=== PATIENT | female | born 1965 | race Caucasian/White ===

== ENCOUNTER 2016-12-15 14:00 | Inpatient (IN) | payer MEDICAID ==
[~2016-12-15] VITALS: Ht 160 cm; Wt 79.8 kg
--- NOTE | 2016-12-15 14:09 | NUR ---
PT TO ROOM 11. EKG IN PROGRESS.
[2016-12-15 14:33] LABS: BASOPHIL % 0.5 % (0-2); PLATELET COUNT 205 x10^3mcL (130-400); RED CELL DISTRIBUTION WIDTH 14.5 % (11.5-14.5)
[2016-12-15 14:40] LABS: CARBON DIOXIDE 29.9 mmol/L (21-32); CHLORIDE SERUM 107 mmol/L (98-107); CREATININE SERUM 0.7 mg/dL (0.6-1.0); GFR1 > 60 mL/min; GLUCOSE SERUM 112 mg/dL (74-106); POTASSIUM SERUM 3.7 mmol/L (3.5-5.1); SODIUM SERUM 143 mmol/L (136-145)
[2016-12-15] MEDS ORDERED: ASPIR 8181 MG PO (16:01)
[2016-12-15] MEDS ORDERED: LOSARTAN POTASS50 M1 PO (16:01)
[2016-12-15] MEDS ORDERED: QVAR0.08 MG/Ac IH (16:02)
[2016-12-15] MEDS ORDERED: ALBUTEROL0.63 MG/3 IH (16:02)
--- NOTE | 2016-12-15 16:11 | NUR ---
PT ADMITTED TO TELE, REPORT GIVEN TO SILVESTRE.
[2016-12-15 16:35] VITALS: BP 148/104
[2016-12-15 16:39] VITALS: BP 148/104
--- NOTE | 2016-12-15 16:51 | NUR ---
RECEIVED PATIENT FROM ED VIA GUERNEY, PATIENT ALERT AND ORIENTED MOTHER AT BEDSIDE, TELE # 40 SR, IV ACCESS TO LAC WNL, C/O PAIN TO CHEST WILL MEDICATE ORDERED, ORIENTED PATIENT TO ROOM AND SURROUNDINGS, BED IN LOW POSITION, BED RAILS UP X 2, CALL LIGHT WITHIN REACH, WILL ENDORSE CARE TO PRIMARY NURSE URSULA PARKINSON
[2016-12-15 17:18] LABS: CHOLESTEROL/HDL RATIO 4.6; MAGNESIUM 2.1 mg/dL (1.8-2.4); PHOSPHOROUS 3.6 mg/dL (2.5-4.9)
[2016-12-15 17:28] LABS: FREE T4 1.06 ng/dL (0.76-1.46); FREE THYROXINE INDEX 3.2 ug/dL (1.4-4.5); T4(THYROXINE) 8.1 ug/dL (4.7-13.3)
[2016-12-15 17:51] LABS: T3 TOTAL 1.06 ng/mL
[2016-12-15 18:22] VITALS: BP 142/83
--- NOTE | 2016-12-15 18:31 | NUR ---
INSTRUCTED THE PATIENT TO GIVE URINE SAMPLE TO SEND TO LAB FOR UA. K-PAD WAS APPLIED TO LOWER BACK. SEQUENTIAL STOCKINGS WERE APPLIED TO BLE. THE PATIENT C/O LEFT SHOULDER ACHING 6/10; TORADOL 30 MG IVP WAS ADMINISTERED TO THE PATIENT AT 1808. WILL REASSESS THE PAIN.
--- NOTE | 2016-12-15 19:35 | NUR ---
RECD REPORT FROM IGGY VERGARA. PT IN BED LAYING DOWN AT THE MOMENT. PT AAO X4. PT ON TELE #40, NSR. PULSES PRESENT, NO EDEMA NOTED ON BLE. LUNG SOUNDS CLEAR TO AUSCULTATION. BOWEL SOUNDS ACTIVE. PT STATES HER LAST BM WAS EARLIER TODAY AND IT WAS DIARRHEA. NO N/V, SKIN INTACT. PT STATES SHE HAS 8/10 GENERALIZED PAIN ALL OVER HER BODY. PT STATES THE PAIN IS LIKE A PRESSURE PAIN. IV IN LAC RUNNING NS @ 100 ML/HR. PT IS IN A CALM MOOD. SCD'S AND K-PAD ARE IN PLACE. BED IN LOW POSITION, CALL LIGHT WITHIN REACH, WILL CONTINUE TO MONITOR.
--- NOTE | 2016-12-15 20:15 | NUR ---
I HAVE REVIEWED THE DATA COLLECTION BY PARALEGAL SPECIALIST (NAME):IGGY CHAPMAN CHI, ENTERED ON (DATE/TIME): I CONCUR WITH THE DATA AND ANY EXCEPTIONS OR COMMENTS ARE LISTED BELOW:
--- NOTE | 2016-12-15 20:30 | NUR ---
PT REASESSED FOR PAIN AND STATED PAIN IS MINIMAL AT THIS TIME. PT STATED SHE WANTS PAIN MEDS AT A LATER TIME .
[2016-12-15 20:58] VITALS: BP 114/73
--- NOTE | 2016-12-15 21:51 | NUR ---
PT C/O PAIN 8/10 IN UPPER LEFT CHEST, LEFT SHOULDER, LEFT ARM AND BLE. PT MEDICATED WITH FLEXERIL 5 MG PO. WILL REASSESS PAIN LEVEL.
--- NOTE | 2016-12-15 23:00 | NUR ---
PT SLEEPING AT THIS TIME. NO SIGNS OF DISTRESS/PAIN NOTED. WILL CONTINUE TO MONITOR.
[2016-12-15 23:41] LABS: microscopic required? YES; urine erythrocyte NEGATIVE (NEGATIVE)
--- NOTE | 2016-12-16 04:55 | NUR ---
PT SLEEPING COMFORTABLY AT THIS TIME WITH NO SIGNS OF DISTRESS NOTED. WILL CONTINUE TO MONITOR.
--- NOTE | 2016-12-16 05:21 | NUR ---
PT SLEPT THROUGH NIGHT COMFORTABLY. PT C/O PAIN IN LEFT UPPER CHEST, BLE, WITH PAIN MORE PROMINENT IN LEFT ARM AT BEGINNING OF SHIFT. NO C/O PAIN THROUGHOUT REST OF SHIFT. PT AMBULATED TO RESTROOM 2X. URINALYSIS SENT TO LAB WITH RESULTS: MODERATE BACTERIA, 2+ LEUKOCYTES, WBC 6-10.
[2016-12-16 05:23] VITALS: BP 138/84
[2016-12-16 06:14] LABS: CALCIUM 8.9 mg/dL (8.5-10.1); CARBON DIOXIDE 28.1 mmol/L (21-32); CHLORIDE SERUM 110 mmol/L (98-107); CREATININE SERUM 0.8 mg/dL (0.6-1.0); GFR1 > 60 mL/min; GLUCOSE SERUM 96 mg/dL (74-106); SODIUM SERUM 145 mmol/L (136-145)
[2016-12-16 06:20] LABS: BASOPHIL % 0.6 % (0-2); PLATELET COUNT 181 x10^3mcL (130-400)
--- NOTE | 2016-12-16 06:20 | NUR ---
PT STATED PAIN IN UPPER LEFT CHEST, SHOULDER, AND LEFT ARM 7/10. PT STATED FLEXERIL WORKED BEST FOR HER SHE WAS ABLE TO SLEEP BETTER IN THE EVENING. PT MEDICATED WITH FLEXERIL 5 MG PO.
[2016-12-16 06:37] LABS: RED CELL DISTRIBUTION WIDTH 14.9 % (11.5-14.5)
[2016-12-16 07:16] VITALS: BP 138/84
--- NOTE | 2016-12-16 07:32 | NUR ---
PT VERBALIZED PAIN WENT DOWN FROM 7/10 TO 6/10 AFTER BEING MEDICATED WITH FLEXERIL 5 MG PO.
--- NOTE | 2016-12-16 07:33 | NUR ---
REPORT GIVEN TO IGGY SCHULTZ. ALL CARES ENDORSED.
--- NOTE | 2016-12-16 07:36 | NUR ---
ALERT AND ORIENTED. REPORTS SOME RELIEF FROM PAIN, BUT STILL 6/10. PAIN IS ON LEFT SIDE OF BODY BELOW AXILLARY AREA AND DOWN LEFT ARM. PAIN IN LEGS IS RESOLVED. HEATING PAD TO MID BACK. HAS REMOVED SCDS AMBULATED TO BATHROOM WITHOUT ASSISTANCE. NO SOB NOTED, ROOM AIR. NO EDEMA NOTED. NS @ 100 TO LAC WNL. REPORTS WISHING SHE COULD THROW UP, BUT HAD HIATAL HERNIA SURGERY AND IS UNABLE, DOES NOT WANT HOB ELEVATED. "I FEEL AWFUL". TELE 40. CALL LIGHT WITHIN REACH.
--- NOTE | 2016-12-16 08:57 | NUR ---
DR SOMERS IN TO SEE PATIENT. MADE AWARE THAT LEVAQUIN AND ROCEPHIN ORDERED FOR UTI, AND ROCEPHIN IS HANGING. NGUYỄN TO BE DC'D.
--- NOTE | 2016-12-16 10:07 | NUR ---
SPOKE WITH DR RAMOS ABOUT NGUYỄN VS BOBBY BEING DC'D.
[2016-12-16 10:15] VITALS: BP 142/79
--- NOTE | 2016-12-16 10:52 | NUR ---
UP AMBULATING TO BATHROOM, STEADY ON FEET.
[2016-12-16 12:44] LABS: CALCIUM 8.8 mg/dL (8.5-10.1); CARBON DIOXIDE 27.6 mmol/L (21-32); CHLORIDE SERUM 109 mmol/L (98-107); CREATININE SERUM 0.9 mg/dL (0.6-1.0); GFR1 > 60 mL/min; GLUCOSE SERUM 154 mg/dL (74-106); POTASSIUM SERUM 3.6 mmol/L (3.5-5.1); SODIUM SERUM 143 mmol/L (136-145)
--- NOTE | 2016-12-16 13:50 | NUR ---
NO DISTRESS NOTED.
[2016-12-16 14:07] VITALS: BP 117/64
--- NOTE | 2016-12-16 14:26 | NUR ---
USING ELECTRONIC DEVICE, NO DISTRESS NOTED.
--- NOTE | 2016-12-16 16:55 | NUR ---
USING ELECTRONIC DEVICE.
--- NOTE | 2016-12-16 17:02 | NUR ---
PAGED DR RAMOS TO REMIND ABOUT NGUYỄN BEING DC'D.
[2016-12-16 17:09] VITALS: BP 144/88
[2016-12-16 17:37] LABS: AMPHETAMINE QUAL UR NONE DETECTED (NEG <=1000)
--- NOTE | 2016-12-16 18:00 | NUR ---
SITTING BEDSIDE EATING BREAKFAST.
--- NOTE | 2016-12-16 19:20 | NUR ---
SEEN AAOX4. DENIES CHEST PAIN. BREATHING EASY ON ROOM AIR. NSR ON TELE# 40. LUNG SOUND CTA. STS VOIDS FREELY, BRP WITH STEADY GAIT. IVF NS TO LAC INFUSING AT 100ML/HR, ON ROCEPHIN IV Q 24HRS. PLAN OF CARE DISCUSSED. CALL LIGHT PLACED WITHIN EASY REACH. SIDERAILS UP X2.
--- NOTE | 2016-12-16 19:35 | NUR ---
IV CATHETER TO LAC REMOVED PER PATIENT'S REQUESTED, NO S/S OF INFLAMATION NOTED. NEW CATHETER#22 INSERTED TO LFA WITH GOOD BLD RETURNED AND FLUSHED WELL. IVF NS CONTINUED AT 100ML/HR.
[2016-12-16 21:12] VITALS: BP 142/64
--- NOTE | 2016-12-17 05:00 | NUR ---
NO ANY DISTRESS THROUGHOUT SHIFT. VSS. FLEXERIL PO X1TAB GIVEN PER PATIENT'S REQUESTED STS FOR SLEEPING. STS VOIDS FREELY, BRP. IVF NS AT 100ML/HR INFUSING WELL.
[2016-12-17 05:52] VITALS: BP 134/70
--- NOTE | 2016-12-17 07:24 | NUR ---
PT RECEIVED DURING CHANGE OF SHIFT, ASLEEP BUT AROUSABLE, TELE 40, NSR, PULSES PRESENT, NO EDEMA NOTED, LUNGS CTA ON RA, BREATHING EVEN AND UNLABORED, BOWEL SOUNDS ACTIVE, ABLE TO VOID, UTI REPORTED, AMBULATORY, SKIN WARM/DRY/INTACT, NO INDICATION OF PAIN, IV INFUSING NS AT 100ML/HR, CALL LIGHT WITHIN REACH, WILL CONTINUE TO MONITOR.
[2016-12-17 08:35] VITALS: BP 129/85
[2016-12-17 09:23] VITALS: BP 129/85
[2016-12-17 09:31] VITALS: BP 129/85
--- NOTE | 2016-12-17 09:36 | NUR ---
PT DENIES SOB, DENIES PAIN, CALL LIGHT WITHIN REACH, WILL CONTINUE TO MONITOR.
[2016-12-17] MEDS ORDERED: CYCLOBENZAPRINE5 MG PO (10:06)
--- NOTE | 2016-12-17 10:08 | NUR ---
PT DENIES SOB, DENIES PAIN, CALL LIGHT WITHIN REACH, WILL CONTINUE TO MONITOR.
--- NOTE | 2016-12-17 10:56 | NUR ---
PT RECEIVED DISCHARGE INSTRUCTIONS, VERBALIZES UNDERSTANDING, ALL QUESTIONS ANSWERED, IV DC'D CATHETER INTACT, ARMBANDS DC'D, TELE 40 DC'D AND RETURNED TO MONITOR STATION, PT INSTRUCTED TO NOTIFY STAFF WHEN READY TO BE ESCORTED DOWNSTAIRS, CALL LIGHT WITHIN REACH.
--- NOTE | 2016-12-17 11:18 | NUR ---
PT BEING ESCORTED DOWNSTAIRS BY AUTOMOTIVE DESIGNER.
[2016-12-17] MEDS ORDERED: CIPRO250 MG PO (14:08)
== END 2016-12-17 11:20 | disposition home or self-care (01) | DRG 243 ==
LOC: ED 14:00 → DU 15:48
PROVIDERS: Emergency Medicine; ADMIT Family Medicine
DX: K21.9 Gastro-esophageal reflux disease without esophagitis (principal); I10 Essential (primary) hypertension; N39.0 Urinary tract infection, site not specified; R73.03 Prediabetes; J44.9 Chronic obstructive pulmonary disease, unspecified; K44.9 Diaphragmatic hernia without obstruction or gangrene; M79.7 Fibromyalgia; E78.5 Hyperlipidemia, unspecified; Z68.31 Body mass index [BMI] 31.0-31.9, adult; Z87.442 Personal history of urinary calculi
CPT/HCPCS: 82962; 83880; 84439; J0696; J1885; J1956; J7030; J7613; Q0092

== ENCOUNTER 2017-08-21 10:49 | Emergency (ER) | payer OTHER ==
[~2017-08-21] VITALS: Ht 152.4 cm; Wt 83.0 kg
[~2017-08-21 10:49] MED LIST: ALBUTEROL0.63 MG/3 IH; ASPIR 8181 MG PO; CIPRO250 MG PO; CYCLOBENZAPRINE5 MG PO; LOSARTAN POTASS50 M1 PO; QVAR0.08 MG/Ac IH
[2017-08-21 10:55] VITALS: Ht 152.4 cm; Wt 83.0 kg
[2017-08-21 11:29] LABS: BASOPHIL % 0.4 % (0-2); PLATELET COUNT 265 x10^3mcL (130-400)
[2017-08-21 11:30] LABS: RED CELL DISTRIBUTION WIDTH 15.3 % (11.5-14.5)
[2017-08-21 11:40] LABS: CALCIUM 8.6 mg/dL (8.5-10.1); CHLORIDE SERUM 108 mmol/L (98-107); CREATININE SERUM 0.7 mg/dL (0.6-1.0); GFR1 > 60 mL/min; GLUCOSE SERUM 95 mg/dL (74-106); POTASSIUM SERUM 3.8 mmol/L (3.5-5.1); SODIUM SERUM 144 mmol/L (136-145)
[2017-08-21 11:44] LABS: ALBUMIN 3.4 g/dL (3.4-5.0); ALKALINE PHOSPHATASE 125 U/L (46-116); ALT/SGPT 27 U/L (14-59); AST/SGOT 17 U/L (15-37); BILIRUBIN TOTAL 0.31 mg/dL (0.20-1.00); CHOLESTEROL 168 mg/dL (<200); CHOLESTEROL/HDL RATIO 3.6; HDL CHOLESTEROL 47 mg/dL (40-60); LIPASE 160 IU/L (73-393); TOTAL PROTEIN, SERUM 6.8 g/dL (6.4-8.2); TRIGLYCERIDES 104 mg/dL (<150)
[2017-08-21 11:45] LABS: microscopic required? YES; urine erythrocyte NEGATIVE (NEGATIVE)
[2017-08-21 11:57] LABS: FREE T4 1.01 ng/dL (0.76-1.46); FREE THYROXINE INDEX 2.8 ug/dL (1.4-4.5); T4(THYROXINE) 7.7 ug/dL (4.7-13.3)
[2017-08-21 12:14] LABS: T3 TOTAL 0.98 ng/mL
[2017-08-21 12:25] VITALS: BP 118/71
== END 2017-08-21 12:47 | disposition home or self-care (01) ==
LOC: ED 10:49
PROVIDERS: Specialist
DX: J20.9 Acute bronchitis, unspecified (principal); I10 Essential (primary) hypertension; E11.9 Type 2 diabetes mellitus without complications; Z88.0 Allergy status to penicillin
CPT/HCPCS: 36415; 83880; 84439; Q0092

== ENCOUNTER 2017-11-22 14:16 | Inpatient (IN) | payer OTHER ==
[~2017-11-22] VITALS: Ht 160 cm; Wt 84.6 kg
[2017-11-22 14:21] VITALS: Ht 160 cm; Wt 84.6 kg
[2017-11-22 14:50] LABS: BASOPHIL % 0.6 % (0-2); PLATELET COUNT 268 x10^3mcL (130-400)
[2017-11-22 14:56] LABS: CALCIUM 9.5 mg/dL (8.5-10.1); CHLORIDE SERUM 107 mmol/L (98-107); CREATININE SERUM 0.9 mg/dL (0.6-1.0); GFR1 > 60 mL/min; GLUCOSE SERUM 105 mg/dL (74-106); POTASSIUM SERUM 3.8 mmol/L (3.5-5.1); SODIUM SERUM 142 mmol/L (136-145)
[2017-11-22] MEDS ORDERED: EPIPEN JR 20.5 MG/ML IM (16:22)
[2017-11-22] MEDS ORDERED: HYDROXYZINE HYD25 MG PO (16:24)
[2017-11-22] MEDS ORDERED: DIPHENHYDRAMINE50 MG PO (16:25)
[2017-11-22] MEDS ORDERED: PROAIR HFA8.5 GM IH (16:29)
[2017-11-22] MEDS ORDERED: DICLOFENAC SODI75 M3 PO (16:30)
[2017-11-22] MEDS ORDERED: BONINE25 MG PO (16:30)
[2017-11-22 16:43] LABS: MAGNESIUM 2.1 mg/dL (1.8-2.4); PHOSPHOROUS 3.9 mg/dL (2.5-4.9)
[2017-11-22 16:44] LABS: CHOLESTEROL/HDL RATIO 5.2
[2017-11-22 16:49] LABS: FREE T4 0.93 ng/dL (0.76-1.46); FREE THYROXINE INDEX 2.7 ug/dL (1.4-4.5); T3 TOTAL 1.11 ng/mL; T4(THYROXINE) 7.7 ug/dL (4.7-13.3)
[2017-11-22 17:25] VITALS: BP 153/95
[2017-11-22 17:45] VITALS: BP 128/86
[2017-11-22 21:18] VITALS: BP 152/99
[2017-11-22 22:07] LABS: microscopic required? NO
[2017-11-22 22:23] LABS: UA SPECIFIC GRAVITY 1.015 (1.005-1.035); urine erythrocyte NEGATIVE (NEGATIVE)
[2017-11-22 22:32] LABS: AMPHETAMINE QUAL UR NONE DETECTED (See below)
[2017-11-23 05:26] VITALS: BP 126/82
[2017-11-23 05:58] LABS: BASOPHIL % 0.5 % (0-2); PLATELET COUNT 211 x10^3mcL (130-400)
[2017-11-23 06:01] LABS: RED CELL DISTRIBUTION WIDTH 15.8 % (11.5-14.5)
[2017-11-23 06:08] LABS: CALCIUM 8.4 mg/dL (8.5-10.1); CARBON DIOXIDE 26.1 mmol/L (21-32); CHLORIDE SERUM 107 mmol/L (98-107); CREATININE SERUM 0.8 mg/dL (0.6-1.0); GFR1 > 60 mL/min; GLUCOSE SERUM 98 mg/dL (74-106); POTASSIUM SERUM 3.7 mmol/L (3.5-5.1); SODIUM SERUM 139 mmol/L (136-145)
[2017-11-23 08:50] VITALS: BP 113/67
[2017-11-23 11:55] VITALS: BP 113/67
[2017-11-23 12:36] VITALS: BP 119/48
== END 2017-11-23 15:32 | disposition home or self-care (01) | DRG 203 ==
LOC: ED 14:16 → DU 16:07
PROVIDERS: Emergency Medicine; Internal Medicine
DX: M94.0 Chondrocostal junction syndrome [Tietze] (principal); E78.5 Hyperlipidemia, unspecified; I10 Essential (primary) hypertension; R73.03 Prediabetes; F41.9 Anxiety disorder, unspecified; G89.29 Other chronic pain; J45.909 Unspecified asthma, uncomplicated; Z88.0 Allergy status to penicillin; Z79.899 Other long term (current) drug therapy
CPT/HCPCS: 82962; 83880; 84439; 94150; J1885; J2405; J7030; J7620; Q0092; Q0162; Q9967

== ENCOUNTER 2018-08-14 07:19 | Emergency (ER) | payer OTHER ==
[~2018-08-14] VITALS: Ht 160 cm; Wt 84.4 kg
[~2018-08-14 07:19] MED LIST changes: +BONINE25 MG PO; +DICLOFENAC SODI75 M3 PO; +DIPHENHYDRAMINE50 MG PO; +EPIPEN JR 20.5 MG/ML IM; +HYDROXYZINE HYD25 MG PO; +PROAIR HFA8.5 GM IH
[2018-08-14 07:27] VITALS: Ht 160 cm; Wt 84.4 kg
[2018-08-14 08:32] LABS: BASOPHIL % 1.1 % (0-2); PLATELET COUNT 282 x10^3mcL (130-400)
[2018-08-14 08:39] LABS: CALCIUM 8.8 mg/dL (8.5-10.1); CARBON DIOXIDE 26.1 mmol/L (21-32); CHLORIDE SERUM 107 mmol/L (98-107); CREATININE SERUM 0.8 mg/dL (0.6-1.0); GFR1 > 60 mL/min; GLUCOSE SERUM 109 mg/dL (74-106); POTASSIUM SERUM 3.9 mmol/L (3.5-5.1); SODIUM SERUM 142 mmol/L (136-145)
[2018-08-14 08:44] LABS: ALBUMIN 3.5 g/dL (3.4-5.0); ALKALINE PHOSPHATASE 119 U/L (46-116); ALT/SGPT 38 U/L (14-59); AST/SGOT 20 U/L (15-37); BILIRUBIN TOTAL 0.32 mg/dL (0.20-1.00)
[2018-08-14 08:52] LABS: RED CELL DISTRIBUTION WIDTH 15.4 % (11.5-14.5)
[2018-08-14 09:44] VITALS: BP 135/89
== END 2018-08-14 09:44 | disposition home or self-care (01) ==
LOC: ED 07:19
PROVIDERS: Emergency Medicine
DX: E11.42 Type 2 diabetes mellitus with diabetic polyneuropathy (principal); J45.909 Unspecified asthma, uncomplicated; I10 Essential (primary) hypertension; Z88.0 Allergy status to penicillin
CPT/HCPCS: 36415; 82962; Q0092

== ENCOUNTER 2018-09-21 19:13 | Inpatient (IN) | payer OTHER ==
[~2018-09-21] VITALS: Ht 160 cm; Wt 81.6 kg
[2018-09-21 19:19] VITALS: Ht 160 cm; Wt 81.6 kg
[2018-09-21 20:11] LABS: BASOPHIL % 0.6 % (0-2); PLATELET COUNT 298 x10^3mcL (130-400)
[2018-09-21 20:12] LABS: RED CELL DISTRIBUTION WIDTH 15.6 % (11.5-14.5)
[2018-09-21 20:27] LABS: CALCIUM 9.8 mg/dL (8.5-10.1); CARBON DIOXIDE 23.1 mmol/L (21-32); CHLORIDE SERUM 111 mmol/L (98-107); CREATININE SERUM 0.9 mg/dL (0.6-1.0); GFR1 > 60 mL/min; GLUCOSE SERUM 91 mg/dL (74-106); POTASSIUM SERUM 3.5 mmol/L (3.5-5.1); SODIUM SERUM 150 mmol/L (136-145)
[2018-09-21 20:32] LABS: ALKALINE PHOSPHATASE 131 U/L (46-116); ALT/SGPT 30 U/L (14-59); AST/SGOT 15 U/L (15-37); BILIRUBIN TOTAL 0.21 mg/dL (0.20-1.00); TOTAL PROTEIN, SERUM 7.8 g/dL (6.4-8.2)
--- NOTE | 2018-09-21 21:00 | NUR ---
PT AAOX4, PT GRIMACING AND GUARDING ABD. PT REPORTS LLQ ABD PAIN X 3 DAYS, WITH N/V/D. PT REPORTS VOMITING "ALL DAY TODAY". PT REPORTS BURNING ON URINATION AND INCREASE FREQUENCY. PT ENCOURAGED TO REPOSITION FOR COMFORT, PT TALKING TO FAMILY MEMBER AT BEDSIDE. RESPIRATIONS ARE EVEN AND UNLABORED.
--- NOTE | 2018-09-21 21:45 | NUR ---
PT SITTING UP IN BED, GRIMACING IN PAIN. ADMINSTERED TORADOL AND ZOFRAN IV PER ORDER. PT REFUSED IV FENTANYL STATING "IM A RECOVERING DRUG ADDICT JUST THE THOUGHT OF DRUGS IS MAKING MY HEART BEAT REALLY FAST".
--- NOTE | 2018-09-21 22:30 | NUR ---
PT REPORTS PAIN HAS INCREASED TO 8/10 OF LLQ. PT ADMINSTERED IV FENTANYL PER ORDER.
--- NOTE | 2018-09-21 23:07 | NUR ---
PT REPORTS PAIN HAS DECREASED TO A 1/10 AND IS TOLERABLE AFTER THE ADMINISTRATION OF IV FENTANYL. PT AMBULATED TO AND FROM BATHROOM WITH STEADY GAIT.
--- NOTE | 2018-09-22 00:39 | NUR ---
PT REPORTS NAUSEA, DR BRUNO MADE AWARE. PT GIVEN ZOFRAN IV PER ORDER. PT DENIES PAIN AT THIS TIME.
--- NOTE | 2018-09-22 00:40 | NUR ---
DR BRUNO AT BEDSIDE, DISCUSSING PLAN OF CARE WITH PT.
--- NOTE | 2018-09-22 01:29 | NUR ---
REPORT GIVEN TO IGGY DAMIAN TO ASSUME CARE OF PT.
--- NOTE | 2018-09-22 01:40 | NUR ---
RECEIVED PT FROM ED VIA WHEELCHAIR ACCOMPANIED BY A NURSE.SHE CAME HER DUE TO LEFT LOWER ABDOMINAL PAIN THAT RADIATES TO FLANK X3 DAYS.LUNG SOUND CTA. BREATHING EVEN AND UNLABORED. PER PT PAIN IS STARTING AGAIN BUT ITS TOLERABLE.ABDOMEN SOFT AND ROUND.FOLLOW COMMANDS.PULSES ARE PALPABLE. NO EDEMA NOTED TO ALL EXTREMITIES.AMBULATORY.IV SITE PATENT AND INTACT. SKIN ARE INTACT. BED IN LOWEST POSITION,CALL LIGHT WITHIN REACH. WILL CONTINUE TO MONITOR.
[2018-09-22 01:42] LABS: MAGNESIUM 2.3 mg/dL (1.8-2.4); PHOSPHOROUS 3.5 mg/dL (2.5-4.9)
[2018-09-22 01:43] LABS: CHOLESTEROL/HDL RATIO 5.9
[2018-09-22 01:56] VITALS: BP 125/66
--- NOTE | 2018-09-22 02:51 | NUR ---
PT C/O ABDOMINAL PAIN 09/17. MEDICATED TORADOL 15MG IV ORDERED. WILL CONTINUE TO MONITOR. PT ALSO C/O INSOMIA.MEDICATED AMBIEN 5MG PO ORDERED.
--- NOTE | 2018-09-22 05:21 | NUR ---
PT APPEARS TO BE SLEEPING. NO DISTRESS NOTED. NO C/O N&V. NO INDICATION OF PAIN. BED IN LOWEST POSITION,CALL LIGFHT WITHIN REACH. WILL CONTINUE TO MONITOR.
[2018-09-22 05:44] VITALS: BP 116/71
[2018-09-22 06:34] LABS: CALCIUM 8.4 mg/dL (8.5-10.1); CARBON DIOXIDE 27.8 mmol/L (21-32); CHLORIDE SERUM 112 mmol/L (98-107); CREATININE SERUM 0.8 mg/dL (0.6-1.0); GFR1 > 60 mL/min; GLUCOSE SERUM 137 mg/dL (74-106); POTASSIUM SERUM 3.3 mmol/L (3.5-5.1); SODIUM SERUM 147 mmol/L (136-145)
[2018-09-22 07:19] LABS: BASOPHIL % 0.6 % (0-2); PLATELET COUNT 241 x10^3mcL (130-400); RED CELL DISTRIBUTION WIDTH 15.9 % (11.5-14.5)
--- NOTE | 2018-09-22 07:25 | NUR ---
CARE ENDORSED TO DAY NURSE CHER.
--- NOTE | 2018-09-22 08:00 | NUR ---
ALERT AND ORIENTED. BREATHING FREELY ON RA. NS INFUSING 100 CC HOUR TO LEFT WRIST. INTERMITTENT PAIN TO LEFT INGUINAL AND SUPRAPUBIC. INTERMITTENT NAUSEA. STRAINING ALL URINE.INDEPENDENT W ADL'S. CALL LIGHT WITHIN REACH.
[2018-09-22 09:58] VITALS: BP 159/105
--- NOTE | 2018-09-22 13:41 | NUR ---
RESIDENT AWARE OF K 3.3.
--- NOTE | 2018-09-22 15:52 | NUR ---
PT AMBULATED IN HALLWAY ACCOMPANIED BY HER SISTER.
[2018-09-22 16:41] VITALS: BP 118/76
--- NOTE | 2018-09-22 18:14 | NUR ---
INDEPENDENT W ADL'S. CONTINUE TO STRAIN ALL URINE. NO STONES NOTED YET. INTERMITTENT NAUSEA AND LEFT INGUINAL PAIN. NS INFUSING 100 CC HOUR. VSS. ZOFRAN AND DILAUDID HELPFUL. CALL LIGHT WITHIN REACH.
--- NOTE | 2018-09-22 19:48 | NUR ---
PT IS A/O X4. PT BREATHING IS EVEN AND UNLABORED. PT LUNG SOUNDS ARE CLEAR BILATERALLY. PT IS MED SURG. PULSES ARE PALPABLE AND NO EDEMA NOTED. PT DENIES ANY PAIN AT THIS TIME. PT DENIES ANY N/V AT THIS TIME. LAST BM 09/22, ABD SOFT AND ROUND. PT IS ABULATORY. PT HAS INTERMITTENT PAIN IN LEFT LOWER PELVIC THAT RADIATES TO LOWER BACK. PT HAS IV ON LW INTACT AND PATENT. WILL CONTINUE TO MONITOR.
[2018-09-22 20:25] VITALS: BP 116/74
--- NOTE | 2018-09-23 | NUR ---
PT EVEN AND UNLABORED. NO RESP DISTRESS NOTED AT THIS TIME. PT DENIES ANY PAIN AT THIS TIME. PT HAS BEEN URINATED REGUALRLY. PT IS RESTING IN BED. WILL CONTINUE TO MONITOR.
--- NOTE | 2018-09-23 02:40 | NUR ---
PT IS IN BED ASLEEP, NO RESP DISTRESS NOTED. BREATHING IS EVEN AND UNLABORED. PT HAS CALL LIGHT WITHIN REACH. WILL CONTINUE TO MONITOR.
[2018-09-23 05:37] VITALS: BP 135/75
--- NOTE | 2018-09-23 06:20 | NUR ---
PT SLEPT THROUGH THE NIGHT. NO RESP DISTRESS NOTED. BREATHING WAS EVEN AND UNLABORED. PT VOIDED AND NO COLIC NOTED. PT RECEIVED ZOFRAN X1 AND DILUDID X1 FOR NAUSEA AND PAIN. PT STATES PAIN WAS IN THE LOWER LEFT PELVIC AREA. IV DC'D ON LW AND NOW HAS IV TO RF INFUSING WELL. PT WAS COOPERATIVE WITH NURSING CARE.
[2018-09-23 06:36] LABS: CALCIUM 9.2 mg/dL (8.5-10.1); CARBON DIOXIDE 24.4 mmol/L (21-32); CHLORIDE SERUM 113 mmol/L (98-107); CREATININE SERUM 0.7 mg/dL (0.6-1.0); GFR1 > 60 mL/min; GLUCOSE SERUM 88 mg/dL (74-106); MAGNESIUM 2.1 mg/dL (1.8-2.4); POTASSIUM SERUM 3.4 mmol/L (3.5-5.1); SODIUM SERUM 149 mmol/L (136-145)
[2018-09-23 06:50] LABS: BASOPHIL % 0.6 % (0-2); PLATELET COUNT 229 x10^3mcL (130-400)
--- NOTE | 2018-09-23 08:10 | NUR ---
ALERT AND ORIENTED. BREATHING FREELY ON RA. DENIES PAIN AT THIS TIME. MEDICATED THIS AM FROM NOC SHIFT WITH GOOD RESULT. NO NAUSEA AT THIS TIME.INDEPENDENT W ADL'S. CONTINUE TO STRAIN ALL URINE. NS INFUSING 100 CC HOUR TO RT FA. VSS. CALL LIGHT WITHIN REACH.
[2018-09-23 08:33] LABS: RED CELL DISTRIBUTION WIDTH 16.3 % (11.5-14.5)
[2018-09-23 09:14] VITALS: BP 125/70
[2018-09-23] MEDS ORDERED: NORCO1 TA2 PO (11:11)
--- NOTE | 2018-09-23 12:31 | NUR ---
PT HAVING PAIN 9/10 AND NAUSEA. ADMIN ZOFRAN 4 MG IV AND DILAUDID 0.5 MG IV. PT WILL BE DC'D IN 1 HOUR.
[2018-09-23 12:37] VITALS: BP 125/70
--- NOTE | 2018-09-23 13:10 | NUR ---
PT GOING HOME. IV DC'D INTACT. NO TELE. PRESCRIPTION GIVEN FOR NORCO 12 TABS. PT TO CALL PCP FOR F/U TAMIKO WITHIN 5 DAYS -1 WEEK OF DC. ALL DC INSTRUCTIONS REVIEWED WITH AND SIGNED BY PT.
== END 2018-09-23 13:45 | disposition home or self-care (01) | DRG 465 ==
LOC: ED 19:13 → MU 09-22 01:15 → DU 09-22 01:15 → MU 09-22 01:45
PROVIDERS: ADMIT Internal Medicine
DX: N13.2 Hydronephrosis with renal and ureteral calculous obstruction (principal); E11.9 Type 2 diabetes mellitus without complications; I10 Essential (primary) hypertension; J45.909 Unspecified asthma, uncomplicated; F41.9 Anxiety disorder, unspecified; G89.29 Other chronic pain; E78.5 Hyperlipidemia, unspecified; Z88.0 Allergy status to penicillin; Z87.442 Personal history of urinary calculi; Z79.899 Other long term (current) drug therapy
CPT/HCPCS: G0378; J1170; J1885; J2405; J3010; J7030; Q0092